=== PATIENT | female | born 1985 | race Caucasian/White ===

== ENCOUNTER 2017-10-17 13:15 | Emergency (ER) | payer OTHER ==
[2017-10-17 13:31] VITALS: BP 135/80; PULSE 108; TEMP 98; BMI 39.4
--- NOTE | 2017-10-17 13:54 | PDOC ---
History of Present Illness - General Chief Complaint: Back Pain Stated Complaint: RIGHT SIDE PAIN Time Seen by Provider: 10/17/17 13:38 - History of Present Illness Initial Comments: 32 y/o F without comorbities presents for evaluation of sudden onset of LBP localized to the R without associated symptoms. No issues like this in the past. 10/17/17 13:51 Past History - Past Medical History Allergies/Adverse Reactions: Allergies Allergy/AdvReac Type Severity Reaction Status Date / Time latex Allergy Verified 10/17/17 13:27 Home Medications: Ambulatory Orders Levothyroxine [Synthroid -] 150 mcg PO DAILY 12/17/15 Ibuprofen [Motrin -] 600 mg PO TID #30 tablet 10/17/17 COPD: No Thyroid Disease: Yes (hypothyroid) - Suicide/Smoking/Psychosocial Hx Smoking Status: No Smoking History: Never smoked Number of Cigarettes Smoked Daily: 0 Review of Systems - Review of Systems Musculoskeletal: Yes: Back Pain All Other Systems: Reviewed and Negative *Physical Exam - Vital Signs Last Vital Signs Temp Pulse Resp BP Pulse Ox 98 F 108 H 19 135/80 99 10/17/17 13:27 10/17/17 13:27 10/17/17 13:27 10/17/17 13:27 10/17/17 13:27 - Physical Exam Comments: 10/17/17 13:52 GENERAL: The patient is awake, alert, and fully oriented, in no acute distress. HEAD: Normal with no signs of trauma. EYES: Pupils equal, round and reactive to light, extraocular movements intact, sclera anicteric, conjunctiva clear. ENT: Ears normal, nares patent, oropharynx clear without exudates. Moist mucous membranes. NECK: Normal range of motion, supple without lymphadenopathy, JVD, or masses. LUNGS: Breath sounds equal, clear to auscultation bilaterally. No wheezes, and no crackles. HEART: Regular rate and rhythm, normal S1 and S2 without murmur, rub or gallop. ABDOMEN: Soft, nontender, normoactive bowel sounds. No guarding, no rebound. No masses. R CVAT EXTREMITIES: Normal range of motion, no edema. No clubbing or cyanosis. No cords, erythema, or tenderness. NEUROLOGICAL: Cranial nerves II through XII grossly intact. Normal speech, normal gait. PSYCH: Normal mood, normal affect. SKIN: Warm, Dry, normal turgor, no rashes or lesions noted. ED Treatment Course - LABORATORY CBC & Chemistry Diagram: 10/17/17 13:47 10/17/17 13:47 Medical Decision Making - Medical Decision Making I will get priliminary blood work, I suspect renal stone 10/17/17 13:53 10/17/17 16:18 CT reviewed, no obstructing stone. Will d/c with NSAIDS And urology f/u *DC/Admit/Observation/Transfer Diagnosis at time of Disposition: Renal calculus or stone - Discharge Dispostion Disposition: HOME Condition at time of disposition: Improved Decision to Admit order: No - Prescriptions Prescriptions: Ibuprofen [Motrin -] 600 mg PO TID #30 tablet - Referrals Referrals: Giovani Samaniego MD [Staff Physician] - - Patient Instructions Printed Discharge Instructions: Kidney Stones -- Adult, DI for Kidney Stones Additional Instructions: Please return to the ER should your symptoms worsen or go unresolved. Be sure to follow up with urology in the next 1-2 days for further evaluation and treatment options. I have given you a prescription for Motrin which should help with your discomfort. Please take this medication with food and stop it if it should upset your stomach. - Post Discharge Activity
[2017-10-17 14:05] LABS: BASO % 0.9 % (0-2.0); EOS % 1.4 % (0-4.5); HEMOGLOBIN 13.7 GM/dL (10.7-15.3); LYMPH % 23.9 % (8-40); MCHC 33.3 g/dl (32.0-36.0); MEAN CELL VOLUME 90.1 fl (80-96); NEUT % 68.8 % (42.8-82.8); PLATELET COUNT 338 K/MM3 (134-434); RBC 4.55 M/mm3 (3.60-5.2); RDW 13.9 % (11.6-15.6); WHITE BLOOD COUNT 11.1 K/mm3 (4.0-10.0)
[2017-10-17 14:13] LABS: URINE APPEARANCE SLCLOUDY; URINE BILIRUBIN NEGATIVE (<2.0 mg/dL); URINE COLOR YELLOW; URINE GLUCOSE (UA) NEGATIVE (NEGATIVE); URINE KETONE NEGATIVE (NEGATIVE); URINE LEUK ESTERASE NEGATIVE (NEGATIVE); URINE NITRITE NEGATIVE (NEGATIVE); URINE UROBILINOGEN NEGATIVE mg/dL (0.2-1.0)
[2017-10-17 14:16] LABS: URINE PROTEIN 1+ (NEGATIVE)
[2017-10-17] MEDS ORDERED: KETOROLAC TROMETHAMINE 60 MG/2 ML VIAL IM ONE (14:20)
[2017-10-17] MEDS ORDERED: RANITIDINE HCL 150 MG TABLET (FP) PO ONE (14:20)
[2017-10-17] MEDS ORDERED: KETOROLAC TROMETHAMINE 60 MG/2 ML VIAL ONE (14:22)
[2017-10-17] MEDS ORDERED: RANITIDINE HCL 150 MG TABLET (FP) ONE (14:23)
[2017-10-17 14:27] LABS: EPI CELLS MODERATE /HPF (FEW)
[2017-10-17 15:33] LABS: ALBUMIN 4.1 g/dl (3.4-5.0); ALK PHOS 83 U/L (45-117); ANION GAP 9 (8-16); BILIRUBIN,TOTAL 0.5 mg/dL (0.2-1.0); BLOOD UREA NITROGEN 10 mg/dL (7-18); CALCIUM 9.4 mg/dL (8.5-10.1); CHLORIDE 103 mmol/L (98-107); CO2 25 mmol/L (21-32); CREATININE 0.7 mg/dL (0.55-1.02); GLUCOSE,RANDOM 94 mg/dL (74-106); POTASSIUM 4.2 mmol/L (3.5-5.1); SGOT/AST 16 U/L (15-37); SGPT/ALT 24 U/L (12-78); SODIUM 137 mmol/L (136-145); TOT PROT 8.8 g/dl (6.4-8.2)
== END 2017-10-17 16:26 | disposition home or self-care (01) ==
LOC: JERFT 13:15
PROC: 3E0233Z Introduction of Anti-inflammatory into Muscle, Percutaneous Approach (ICD-10-PCS; principal; 2017-10-17)
DX: N20.0 Calculus of kidney (principal); E03.9 Hypothyroidism, unspecified
CPT/HCPCS: 36415; 74176-TC; 80053; 81003; 81015; 84703; 85025; 99282-25

== ENCOUNTER 2018-03-05 12:47 | Emergency (ER) | payer OTHER ==
[2018-03-05 12:55] VITALS: BP 117/72; PULSE 102; TEMP 98; BMI 34.3
[2018-03-05] MEDS ORDERED: LACTATED RINGERS SOLUTION 1,000 ML IV STA (12:57)
[2018-03-05] MEDS ORDERED: ONDANSETRON 4 MG/2 ML VIAL IVPUSH ONE (12:57)
--- NOTE | 2018-03-05 12:57 | PDOC ---
History of Present Illness - General Chief Complaint: Nausea/Vomiting Stated Complaint: DEHYDRATED Time Seen by Provider: 03/05/18 12:56 History Source: Patient Exam Limitations: No Limitations - History of Present Illness Initial Comments: 03/05/18 13:33 32 YOF with h/o hypothyroidism, gastric sleeve bypass surgery 01/27/18 and esophageal stricture s/p balloon dilation (02/28/18) with NYP presenting with worsening AP, nausea and NBNB vomiting x 1 week, but present x 5 weeks since her surgery. difficulty tolerating PO intake including solids, liquids and ensure. pt states no f/c, cp, sob, urinary sx currently on menses. no tobacco or etoh use. NKA. PMD Dr. Liborio Frausto [phone] ([place]) 03/05/18 13:40 Past History - Past Medical History Allergies/Adverse Reactions: Allergies Allergy/AdvReac Type Severity Reaction Status Date / Time latex Allergy Verified 03/05/18 12:50 Home Medications: Ambulatory Orders Levothyroxine [Synthroid -] 150 mcg PO DAILY 12/17/15 COPD: No Thyroid Disease: Yes (hypothyroid) - Surgical History GI Surgery: Yes (gastric sleeve) - Suicide/Smoking/Psychosocial Hx Smoking Status: No Smoking History: Unknown if ever smoked Number of Cigarettes Smoked Daily: 0 Review of Systems - Review of Systems Able to Perform ROS?: Yes Comments:: 03/05/18 13:36 GENERAL/CONSTITUTIONAL: No fever or chills. No weakness. no sweats. HEAD, EYES, EARS, NOSE AND THROAT: No sore throat or mouth pain. +difficulty swallowing. No congestion. CARDIOVASCULAR: No chest pain or palpitations, or edema. +syncope (2d ago) RESPIRATORY: No SOB, cough, wheezing, or hemoptysis. GASTROINTESTINAL +AP, nausea/vomiting. No diarrhea or constipation. No bloody stools. GENITOURINARY: No hematuria, dysuria, frequency, urgency or other changes. MUSCULOSKELETAL: No joint or muscle swelling or pain. No neck or back pain. SKIN: No rash or changes in skin color or lesions. NEUROLOGIC: No headache, or change in strength/sensation. HEMATOLOGIC/LYMPHATIC: No anemia, easy bruising/bleeding, or history of blood clots. ALLERGIC/IMMUNOLOGIC: No allergies All other systems reviewed and negative, or as documented in HPI. *Physical Exam - Vital Signs Last Vital Signs Temp Pulse Resp BP Pulse Ox 98 F 102 H 18 117/72 100 03/05/18 12:54 03/05/18 12:54 03/05/18 12:54 03/05/18 12:54 03/05/18 12:54 - Physical Exam Comments: 03/05/18 13:40 General: Well appearing, awake and alert, NAD. HEENT: NCAT, PERRL, EOMI, clear conjunctiva, anicteric, moist mucus membranes, clear oropharynx, no oral lesions.. Neck: neck supple, FROM Resp: CTAB, normal and even respirations, no respiratory distress CVS: RRR, no murmurs, 2+ peripheral pulses throughout, no peripheral edema Abdomen: soft, nondistended, diffuse mid abdominal tenderness, no rebound or guarding. no cvat. Back: nontender, normal inspection and ROM MSK: no edema, SEBASTIAN x4, ROM intact. No clubbing or cyanosis. normal bulk and tone. Extrem: no calf tenderness Neuro: alert, oriented appropriately; no focal neurologic deficits Skin: warm and well perfused, cap refill <2 sec, normal color 03/05/18 13:41 ED Treatment Course - LABORATORY CBC & Chemistry Diagram: 03/05/18 13:36 03/05/18 13:36 Medical Decision Making - Medical Decision Making 03/05/18 17:[facility] Vital signs reviewed, mild tachy 2/2 pain. Prior notes reviewed, including admissions, discharges and consultations. laboratory results and imaging reviewed, basic labs and lytes wnl, neg for . LFTs normal, lipase normal, reassuring. ED course: no acute events, remained stable and well appearing. Clinically improved after interventions, including zofran, LR hydration, pepcid and banana bag. Spoke with private bariatric surgeon, Dr. Frausto, amenable to plan. CT a/p pending to r/o internal hernia/obstruction given recent sleeve. Can get 60cc gastroview given gastric sleeve. if unremarkable, can followup surgeon. Dispo: s/o pending reeval, CT results and ultimate dispo; return precautions discussed. f/u Dr. Frausto, primary bariatric surgeon, who was made aware of information and presentation today 03/05/18 17:17 *DC/Admit/Observation/Transfer Diagnosis at time of Disposition: Abdominal pain - Discharge Dispostion Condition at time of disposition: Good - Referrals - Patient Instructions - Post Discharge Activity
[2018-03-05] MEDS ORDERED: FAMOTIDINE 20 MG/50 ML IVPB 20 MG/50 ML MG IVPB ONE ×2 (13:00→13:17)
[2018-03-05] MEDS ORDERED: ONDANSETRON 4 MG/2 ML VIAL ONE (13:17)
[2018-03-05 13:51] LABS: BASO % 0.5 % (0-2.0); EOS % 2.6 % (0-4.5); HEMATOCRIT 40.4 % (32.4-45.2); HEMOGLOBIN 13.8 GM/dL (10.7-15.3); LYMPH % 25.5 % (8-40); MCHC 34.1 g/dl (32.0-36.0); MEAN PLT VOLUME 10.6 fl (7.5-11.1); MONO % 7.8 % (3.8-10.2); NEUT % 63.6 % (42.8-82.8); PLATELET COUNT 194 K/MM3 (134-434); RBC 4.59 M/mm3 (3.60-5.2); RDW 15.6 % (11.6-15.6); WHITE BLOOD COUNT 5.9 K/mm3 (4.0-10.0)
[2018-03-05 14:13] LABS: ALBUMIN 3.9 g/dl (3.4-5.0); ALK PHOS 102 U/L (45-117); ANION GAP 13 MMOL/L (8-16); BILIRUBIN,TOTAL 0.7 mg/dL (0.2-1); CALCIUM 9.3 mg/dL (8.5-10.1); CHLORIDE 108 mmol/L (98-107); CO2 19 mmol/L (21-32); CREATININE 0.7 mg/dL (0.55-1.3); GLUCOSE,RANDOM 86 mg/dL (74-106); LIPASE 264 U/L (73-393); POTASSIUM 3.7 mmol/L (3.5-5.1); SGOT/AST 28 U/L (15-37); SGPT/ALT 43 U/L (13-61); SODIUM 140 mmol/L (136-145); TOT PROT 8.2 g/dl (6.4-8.2)
[2018-03-05] MEDS ORDERED: LACTATED RINGERS SOLUTION 1000 ML INFUS.BAG IV ONE (14:30)
[2018-03-05] MEDS ORDERED: FOLIC ACID 1 MG TABLET (FP) PO ONE (14:30)
[2018-03-05] MEDS ORDERED: FOLIC ACID INJECTION - 1 MG, THIAMINE HCL 100 MG, MULTIVIT INJECTION ADULT 10 ML in SOD... IVPB ONE (14:30)
[2018-03-05 14:39] LABS: BLOOD UREA NITROGEN 2 mg/dL (7-18)
--- NOTE | 2018-03-05 18:38 | PDOC ---
*Physical Exam - Vital Signs Last Vital Signs Temp Pulse Resp BP Pulse Ox 98 F 102 H 18 117/72 100 03/05/18 12:54 03/05/18 12:54 03/05/18 12:54 03/05/18 12:54 03/05/18 12:54 - Physical Exam Comments: 03/05/18 18:35 Patient endorsed to me by Dr. Santana. Patient is a 32-year-old female status post gastric sleeve 5 weeks previously presented with abdominal pain and numerous episodes of nonbloody, nonbilious vomiting. Patient also endorses recurrent nausea since surgery. In the ER, patient improved after interventions of IV fluids and antiemetics. CT of abdomen and pelvis reveals no evidence of internal hernia, a liver lesion is noted on image 37 measuring 17 mm which requires patient follow-up with MRI. There is also mild wall thickening of the proximal right colon and distal small bowel consistent with enterocolitis. On reassessment, patient has minimal tenderness to deep palpation of the left upper quadrant, left lower quadrant and right lower quadrant. There is no guarding or rebound. Patient able tolerate by mouth. I do not suspect acute appendicitis with diverticulitis at this time. Repeat attempts to consult the bariatric surgeon were unsuccessful. Patient provided results of the CAT scan. Will discharge with outpatient follow-up as planned. ED Treatment Course - LABORATORY CBC & Chemistry Diagram: 03/05/18 13:36 03/05/18 13:36 - ADDITIONAL ORDERS Additional order review: Laboratory Results 03/05/18 03/05/18 13:36 13:36 Sodium 140 Potassium 3.7 Chloride 108 H Carbon Dioxide 19 L Anion Gap 13 BUN 2 L* Creatinine 0.7 Creat Clearance w eGFR > 60 Random Glucose 86 Calcium 9.3 Total Bilirubin 0.7 AST 28 ALT 43 Alkaline Phosphatase 102 Total Protein 8.2 Albumin 3.9 Lipase 264 Serum , Qual Negative 03/05/18 13:36 RBC 4.59 MCV 88.0 MCHC 34.1 RDW 15.6 D MPV 10.6 D Neutrophils % 63.6 Lymphocytes % 25.5 Monocytes % 7.8 Eosinophils % 2.6 D Basophils % 0.5 - Medications Given in the ED: ED Medications Discontinued Medications Generic Name Dose Route Start Last Admin Trade Name Freq PRN Reason Stop Dose Admin Folic Acid 1 mg 03/05/18 14:30 03/05/18 17:44 Folic Acid - PO 03/05/18 14:31 Not Given ONCE ONE Lactated Ringer's 1,000 mls @ 1,000 mls/hr 03/05/18 12:57 03/05/18 13:37 Lactated Ringers Solution IV 03/05/18 13:56 1,000 mls/hr ONCE STA Administration Famotidine/Sodium Chloride 20 mg in 50 mls @ 100 mls/hr 03/05/18 13:00 13:37 Pepcid 20 Mg Premixed Ivpb - IVPB 03/05/18 13:29 100 mls/hr ONCE ONE Administration Lactated Ringer's 1,000 ml 03/05/18 14:30 03/05/18 15:06 Lactated Ringers Solution IV 03/05/18 14:31 1,000 ml ONCE ONE Administration Ondansetron HCl 4 mg 03/05/18 12:57 03/05/18 13:37 Zofran Injection IVPUSH 03/05/18 12:58 4 mg ONCE ONE Administration *DC/Admit/Observation/Transfer Diagnosis at time of Disposition: Abdominal pain Qualifiers: Abdominal location: generalized Qualified Code(s): R10.84 - Generalized abdominal pain Nausea and vomiting Qualifiers: Vomiting type: unspecified Vomiting Intractability: non-intractable Qualified Code(s): R11.2 - Nausea with vomiting, unspecified - Discharge Dispostion Disposition: HOME Condition at time of disposition: Good - Referrals Referrals: dr. edmonds, three-4 days [Other] - Patient Instructions Printed Discharge Instructions: DI for Nausea -- Adult, DI for Vomiting -- Adult, DI for Abdominal Pain-Adult - Post Discharge Activity
== END 2018-03-05 18:50 | disposition home or self-care (01) ==
LOC: JER 12:47
PROC: 3E033GC Introduction of Other Therapeutic Substance into Peripheral Vein, Percutaneous Approach (ICD-10-PCS; principal; 2018-03-05)
PROC: 3E033GC Introduction of Other Therapeutic Substance into Peripheral Vein, Percutaneous Approach (ICD-10-PCS; 2018-03-05)
DX: R10.84 Generalized abdominal pain (principal); G89.18 Other acute postprocedural pain; Z98.84 Bariatric surgery status
CPT/HCPCS: 36415; 74177-TC; 80053; 83690; 84703; 85025; 99281-25; J7030

== ENCOUNTER 2018-07-02 15:34 | Emergency (ER) | payer OTHER ==
[2018-07-02 15:46] VITALS: BP 148/84; PULSE 96; TEMP 98.2; BMI 26.4
[2018-07-02] MEDS ORDERED: ONDANSETRON 4 MG/2 ML VIAL IVPUSH ONE (16:57)
--- NOTE | 2018-07-02 17:04 | PDOC ---
History of Present Illness - General Chief Complaint: Pain Stated Complaint: ABD PAIN/ CHILLS Time Seen by Provider: 07/02/18 16:49 History Source: Patient Exam Limitations: No Limitations - History of Present Illness Initial Comments: 07/02/18 17:04 THe patient is a 33F with a PMH of hypothyroidism, gastric sleeve bypass surgery 01/27/18 and esophageal stricture s/p balloon dilation (02/28/18) with NYP , revision of bypass 5 weeks ago who presents to the ER with 3 days of worsening abdominal pain. The patient describes a dull epigastric pain which becomes sharp as it radiates down to her RLQ. The pain is constant and worsening. She admits to chills, NBNB vomiting, but denies fever, dysuria, hematuria. She admits to not having a bowel movement since last night and also has not passed gas in the same time frame. Past History - Past Medical History Allergies/Adverse Reactions: Allergies Allergy/AdvReac Type Severity Reaction Status Date / Time latex Allergy Verified 07/02/18 15:57 Home Medications: Ambulatory Orders Levothyroxine [Synthroid -] 150 mcg PO DAILY 12/17/15 Omeprazole Magnesium [Acid Professor Of Mathematics] 40 mg PO DAILY 07/02/18 COPD: No GI Disorders: Yes (gastric sleeve) Thyroid Disease: Yes (hypothyroid) - Surgical History GI Surgery: Yes (gastric sleeve/bypass) - Suicide/Smoking/Psychosocial Hx Smoking Status: No Smoking History: Never smoked Number of Cigarettes Smoked Daily: 0 Information on smoking cessation initiated: No Hx Alcohol Use: No Drug/Substance Use Hx: No Review of Systems - Review of Systems Able to Perform ROS?: Yes Comments:: 07/02/18 17:10 GENERAL/CONSTITUTIONAL: + for chills. No fever. No weakness. HEAD, EYES, EARS, NOSE AND THROAT: No change in vision. No ear pain or discharge. No sore throat. CARDIOVASCULAR: No chest pain, palpitations, or lightheadedness. RESPIRATORY: No cough, wheezing, shortness of breath, or hemoptysis. GASTROINTESTINAL: + for nausea, vomiting, and abdominal pain. GENITOURINARY: No dysuria, frequency, hematuria, or change in urination. MUSCULOSKELETAL: No joint or muscle swelling or pain. No neck or back pain. SKIN: No rash or lesions. NEUROLOGIC: No headache, numbness, tingling, focal weakness, loss of consciousness, or change in strength/sensation. Is the patient limited Irish proficient: No *Physical Exam - Vital Signs Last Vital Signs Temp Pulse Resp BP Pulse Ox 98.2 F 96 H 19 148/84 100 07/02/18 16:21 07/02/18 16:21 07/02/18 16:21 07/02/18 16:21 07/02/18 16:21 - Physical Exam Comments: 07/02/18 17:16 GENERAL: Well developed, well nourished. Awake and alert. No acute distress. HEENT: Normocephalic, atraumatic. Hearing grossly normal. Moist mucous membranes. PERRLA, EOMI. No conjunctival pallor. NECK: Supple. Full ROM. No JVD. CARDIOVASCULAR: Regular rate and rhythm. No murmurs, rubs, or gallops. PULMONARY: No evidence of respiratory distress. Lungs clear to auscultation bilaterally. No wheezing, rales or rhonchi. ABDOMINAL: Soft. TTP over epigastrium, RUQ, and RLQ. Non-distended. No rebound or guarding. GENITOURINARY: No CVA tenderness bilaterally. MUSCULOSKELETAL: Normal range of motion at all joints. No bony deformities or tenderness. EXTREMITIES: No cyanosis. No clubbing. No edema. No calf tenderness or swelling. SKIN: Warm and dry. Normal capillary refill. No rashes. No jaundice. NEUROLOGICAL: Alert, awake, appropriate. Cranial nerves 2-12 grossly intact. Normal speech. Gait is normal without ataxia. PSYCHIATRIC: Cooperative. Good eye contact. Appropriate mood and affect. Moderate Sedation - Procedure Monitoring Vital Signs: Procedure Monitoring Vital Signs Temperature 98.2 F 07/02/18 16:21 Pulse Rate 96 H 07/02/18 16:21 Respiratory Rate 19 07/02/18 16:21 Blood Pressure 148/84 07/02/18 16:21 O2 Sat by Pulse Oximetry (%) 100 07/02/18 16:21 ED Treatment Course - LABORATORY CBC & Chemistry Diagram: 07/02/18 17:25 07/02/18 17:25 - RADIOLOGY Radiology Studies Ordered: Category Date Time Status ABDOMEN & PELVIS CT WITH CONTR [CT] Stat CT Scan 07/02/18 16:56 Ordered Medical Decision Making - Medical Decision Making 03/09/19 17:17 The patient is a 33F who recently had a bypass revision 5 weeks ago who is presenting with 3 days of abdominal pain, nausea, and vomiting. Pt is very tender on exam. Will order CT with IV and PO contrast. Will give zofran for nausea. 07/02/18 23:20 CTA chest and CTAP negative. BUN low. EKG shows t-wave inversions w/ negative troponin. Pt will f/u with boat laborer. Pt requests bariatric surgeon referral. She states that she feels better and would like ot leave. Nontender on exam. WIll d/c with PCP, cards, and bariatric f/u. *DC/Admit/Observation/Transfer Diagnosis at time of Disposition: Abdominal pain Qualifiers: Abdominal location: generalized Qualified Code(s): R10.84 - Generalized abdominal pain Nausea and vomiting Qualifiers: Vomiting type: unspecified Vomiting Intractability: non-intractable Qualified Code(s): R11.2 - Nausea with vomiting, unspecified - Discharge Dispostion Disposition: HOME Condition at time of disposition: Stable Decision to Admit order: No - Referrals Referrals: Kedar Funez [Primary Care Provider] - Gadiel Joyner MD [Staff Physician] - - Patient Instructions Printed Discharge Instructions: DI for Abdominal Pain-Adult Additional Instructions: Your ER visit is not complete until your follow up with your primary care physician. Please follow up with your primary care physician in 1-2 days. You were given a copy of your EKG. Please follow this up with your boat laborer. Please also follow up with your bariatric surgeon and/or Dr. Joyner. Please return to the ER if you have any signs or symptoms of chest pain, shortness of breath, uncontrollable fever, chills, nausea, vomiting, numbness, tingling, or weakness in any part of your body, changes in vision, or slurred speech. Please take your medications as prescribed. Please return to the ER if symptoms persist, worsen, or new symptoms arise. - Post Discharge Activity
[2018-07-02] MEDS ORDERED: ONDANSETRON 4 MG/2 ML VIAL ONE (17:26)
[2018-07-02 17:46] LABS: BASO % 0.5 % (0-2.0); EOS % 1.5 % (0-4.5); HEMATOCRIT 35.3 % (32.4-45.2); HEMOGLOBIN 12.7 GM/dL (10.7-15.3); MCHC 35.8 g/dl (32.0-36.0); MEAN CELL VOLUME 97.5 fl (80-96); MEAN PLT VOLUME 9.7 fl (7.5-11.1); MONO % 5.6 % (3.8-10.2); NEUT % 59.4 % (42.8-82.8); PLATELET COUNT 240 K/MM3 (134-434); RBC 3.62 M/mm3 (3.60-5.2); RDW 15.2 % (11.6-15.6); WHITE BLOOD COUNT 5.7 K/mm3 (4.0-10.0)
[2018-07-02 18:27] LABS: ALBUMIN 3.8 g/dl (3.4-5.0); ALK PHOS 80 U/L (45-117); ANION GAP 12 MMOL/L (8-16); BILIRUBIN,TOTAL 0.5 mg/dL (0.2-1); CALCIUM 8.8 mg/dL (8.5-10.1); CHLORIDE 107 mmol/L (98-107); CO2 21 mmol/L (21-32); CREATININE 0.5 mg/dL (0.55-1.3); GLUCOSE,RANDOM 70 mg/dL (74-106); LIPASE 76 U/L (73-393); POTASSIUM 3.1 mmol/L (3.5-5.1); SGOT/AST 15 U/L (15-37); SGPT/ALT 19 U/L (13-61); SODIUM 139 mmol/L (136-145); TOT PROT 7.4 g/dl (6.4-8.2)
[2018-07-02 18:45] LABS: BLOOD UREA NITROGEN 2 mg/dL (7-18)
[2018-07-02] MEDS ORDERED: ACETAMINOPHEN 1000 MG/100 ML VIAL (NON FORMULARY) IVPB ONE (18:45)
[2018-07-02] MEDS ORDERED: SODIUM CHLORIDE 1,000 ML IV STA (18:45)
[2018-07-02] MEDS ORDERED: ACETAMINOPHEN INJECTION 100 ML IVPB ONE (18:47)
--- NOTE | 2018-07-02 18:54 | PDOC ---
Attending Attestation - Resident Resident Name: Vishal Stinson - ED Attending Attestation I have performed the following: I have examined & evaluated the patient, The case was reviewed & discussed with the resident, I agree w/resident's findings & plan, Exceptions are as noted - HPI HPI: 07/02/18 18:50 The patient is a 33 year old female, with a past medical history of hypothyroidism, gastric sleeve surgery (01/27/18), esophageal stricture (s/p balloon dilation 02/28/18 at [facility]), and gastric bypass revision 5 weeks ago, who presents to the emergency department with 3 days of worsening epigastric abdominal pain and vomiting. Pt reports multiple episodes of NBNB emesis. Denies diarrhea. Patient notes she has not passed a BM or gas since yesterday. Pt also endorses mild L sided chest pain. Denies SOB. States that she was prescribed a blood thinner after surgery but did not fill it due to insurance reasons. She denies recent fevers, chills, headache or dizziness. She denies recent dysuria, frequency, urgency or hematuria. She denies recent chest pain or shortness of breath. Allergies: Latex - Physicial Exam PE: 07/02/18 18:51 "GENERAL: Awake, alert, and fully oriented, in no acute distress. HEAD: No signs of trauma EYES: PERRLA, EOMI, sclera anicteric, conjunctiva clear ENT: Auricles normal inspection, hearing grossly normal, nares patent, oropharynx clear without exudates. Moist mucosa NECK: Nontender, no stepoffs, Normal ROM, supple, no lymphadenopathy, JVD, or masses LUNGS: Breath sounds equal, clear to auscultation bilaterally. No wheezes, and no crackles HEART: Regular rate and rhythm, normal S1 and S2, no murmurs, rubs or gallops ABDOMEN: + epigastric TTP, mild distention EXTREMITIES: Normal range of motion, no edema. No clubbing or cyanosis. No cords, erythema, or tenderness NEUROLOGICAL: Cranial nerves II through XII intact. 5/5 strength and sensation in all extremities, Normal speech, normal gait, normal cerebellar function SKIN: Warm, Dry, normal turgor, no rashes or lesions noted. - Medical Decision Making 07/02/18 18:52 33 F with abdominal pain, N+V. Will need to r/o SBO or other complication from recent surgery. Pt also with L sided chest pain radiating to arm. Will need to r /o PE. - Labs - CTAP - IVF, GI cocktail Pt's EKG noted to have diffuse TWIs. Pt reports that she has had "abnormal" EKG her entire life but is unable to say exactly what is abnormal about it. Trop negative x1.
[2018-07-02 18:55] LABS: URINE APPEARANCE CLEAR; URINE BILIRUBIN NEGATIVE (<2.0 mg/dL); URINE COLOR YELLOW; URINE GLUCOSE (UA) NEGATIVE (NEGATIVE); URINE KETONE 2+ (NEGATIVE); URINE LEUK ESTERASE NEGATIVE (NEGATIVE); URINE NITRITE NEGATIVE (NEGATIVE); URINE PROTEIN 1+ (NEGATIVE); URINE UROBILINOGEN NEGATIVE mg/dL (0.2-1.0)
[2018-07-02] MEDS ORDERED: KCL 10 MEQ IVPB 10 MEQ/100 ML INFUS.BAG IVPB ONE (19:07)
[2018-07-02] MEDS: KCL 10 MEQ IVPB 10 MEQ/100 ML INFUS.BAG IVPB SCH ×2 (19:08→20:27)
[2018-07-02 19:19] LABS: EPI CELLS RARE /HPF (FEW); URINE MUCUS RARE
[2018-07-02] MEDS ORDERED: METOCLOPRAMIDE HCL INJECTION 10 MG/2 ML VIAL IVPB ONE (22:46)
[2018-07-02] MEDS ORDERED: METOCLOPRAMIDE HCL INJECTION 10 MG/2 ML VIAL ONE (22:49)
--- NOTE | 2018-07-03 11:51 | EKG ---
Test Reason : Blood Pressure : / mmHG Vent. Rate : 093 BPM Atrial Rate : 093 BPM P-R Int : 158 ms QRS Dur : 080 ms QT Int : 376 ms P-R-T Axes : 068 039 -56 degrees QTc Int : 467 ms NORMAL SINUS RHYTHM T WAVE ABNORMALITY, CONSIDER INFERIOR ISCHEMIA T WAVE ABNORMALITY, CONSIDER ANTEROLATERAL ISCHEMIA PROLONGED QT ABNORMAL ECG WHEN COMPARED WITH ECG OF 02-SEP-2008 18:02, INVERTED T WAVES HAVE REPLACED NONSPECIFIC T WAVE ABNORMALITY IN INFERIOR LEADS T WAVE INVERSION LESS EVIDENT IN LATERAL LEADS Confirmed by JT JACOB MD ([id number]) on 07/03/2018 11:50:34 AM Referred By: Confirmed By:JT JACOB MD
== END 2018-07-02 23:53 | disposition home or self-care (01) ==
LOC: JER 15:34
PROC: 3E0337Z Introduction of Electrolytic and Water Balance Substance into Peripheral Vein, Percutaneous Approach (ICD-10-PCS; principal; 2018-07-02)
PROC: 3E033GC Introduction of Other Therapeutic Substance into Peripheral Vein, Percutaneous Approach (ICD-10-PCS; 2018-07-02)
PROC: 3E033NZ Introduction of Analgesics, Hypnotics, Sedatives into Peripheral Vein, Percutaneous Approach (ICD-10-PCS; 2018-07-02)
DX: R10.84 Generalized abdominal pain (principal); R11.2 Nausea with vomiting, unspecified; E03.9 Hypothyroidism, unspecified; Z98.84 Bariatric surgery status
CPT/HCPCS: 36415; 71275-TC; 74177-TC; 80053; 81003; 81015; 82550; 83690; 84484; 84703; 85025; 87086; 93005; 93010; 99283-25; J0131; J7030

== ENCOUNTER 2018-10-22 18:25 | Inpatient (IN) | payer OTHER ==
[2018-10-22 18:28] VITALS: BMI 22.4
[2018-10-22 20:16] VITALS: TEMP 98.2
[2018-10-22 20:35] LABS: BASO % 0.5 % (0-2.0); EOS % 1.9 % (0-4.5); HEMATOCRIT 34.6 % (32.4-45.2); HEMOGLOBIN 11.6 GM/dL (10.7-15.3); LYMPH % 40.8 % (8-40); MCH 33.5 pg (25.7-33.7); MCHC 33.6 g/dl (32.0-36.0); MEAN CELL VOLUME 99.6 fl (80-96); MEAN PLT VOLUME 8.9 fl (7.5-11.1); MONO % 8.1 % (3.8-10.2); NEUT % 48.7 % (42.8-82.8); RBC 3.48 M/mm3 (3.60-5.2); RDW 14.2 % (11.6-15.6); WHITE BLOOD COUNT 4.6 K/mm3 (4.0-10.0)
[2018-10-22 20:42] LABS: PLATELET COUNT 312 K/MM3 (134-434)
--- NOTE | 2018-10-22 20:52 | PDOC ---
History of Present Illness - General History Source: Patient Exam Limitations: No Limitations - History of Present Illness Initial Comments: 10/22/18 20:28 Patient is a 33 year old female with h/o hypothyroid, gastric sleeve 01/2018, gastric bypass 05/2018, c/o b/l lower ext swelling x 2 weeks that does not go down with elevation, chest pain x 3 States feels like a pressure and stabbing occ, flutter for year saw a cardiology who states will get a repeat echo and stress test. Went to [facility] yesterday due to the chest pain. Yesterday she had numbness for the knees down and had swelling from the knees down. States that she had decrease appetite from "the stupid surgery". Patient states that she has been getting worse since getting her gastric sleeve in January 2018. States that her body rejected the gastric sleeve at [facility]. She then had a gastric bypass on 05/27/[address] [facility]. She had chills and swelling which started sweating, denies fever. Had a high prolactin level last year and had a MRI brain scan which was normal. Thinks that the prolactin level was elevated due to breast feeding. Saw the Neurology who diagnosed her with migraines. PMD: Dr. Dean ([facility]) PMHX: as above PSOCHX: neg cig, drug, etoh ALL: latex GENERAL/CONSTITUTIONAL: fever (+) chills. No weakness. (+) weight change. HEAD, EYES, EARS, NOSE AND THROAT: No change in vision. No ear pain or discharge. No sore throat. CARDIOVASCULAR: No chest pain or shortness of breath. RESPIRATORY: No cough, wheezing, or hemoptysis. GASTROINTESTINAL: No nausea, vomiting, diarrhea or constipation. No rectal bleeding. GENITOURINARY: No dysuria, frequency, or change in urination. MUSCULOSKELETAL: No joint or muscle swelling or pain. No neck or back pain. SKIN AND BREASTS: No rash or easy bruising. NEUROLOGIC: (+) headache, (-) vertigo, loss of consciousness, or loss of sensation. PSYCHIATRIC: No depression or anxiety. ENDOCRINE: No increased thirst. (-) abnormal weight change. HEMATOLOGIC/LYMPHATIC: No anemia, easy bleeding, or history of blood clots. ALLERGIC/IMMUNOLOGIC: No hives or skin allergy. No latex allergy. GENERAL: The patient is awake, alert, and fully oriented, in no acute distress. HEAD: Normal with no signs of trauma. EYES: Pupils equal, round and reactive to light, extraocular movements intact, sclera anicteric, conjunctiva clear. ENT: Ears normal, nares patent, oropharynx clear without exudates. Moist mucous membranes. NECK: Normal range of motion, supple without lymphadenopathy, JVD, or masses. LUNGS: Breath sounds equal, clear to auscultation bilaterally. No wheezes, and no crackles. HEART: Regular rate and rhythm, normal S1 and S2 without murmur, rub. ABDOMEN: Soft, nontender, normoactive bowel sounds. No guarding, no rebound. No masses. EXTREMITIES: Normal range of motion, (+)nonpitting edema. No clubbing or cyanosis. No cords, erythema, or tenderness. NEUROLOGICAL: Cranial nerves II through XII grossly intact. Normal speech, normal gait. PSYCH: Normal mood, normal affect. SKIN: Warm, Dry, normal turgor, no rashes or lesions noted, no cellulitis. <Kobe Holt - Last Filed: 10/23/18 01:07> <Zhanna Masters - Last Filed: 10/23/18 02:36> - General Chief Complaint: Edema Stated Complaint: LEG SWELLING/CHEST PRESSURE Time Seen by Provider: 10/22/18 19:22 Past History - Past Medical History COPD: No GI Disorders: Yes (gastric sleeve) Thyroid Disease: Yes (hypothyroid) - Surgical History GI Surgery: Yes (gastric sleeve/bypass) - Suicide/Smoking/Psychosocial Hx Smoking Status: No Smoking History: Never smoked Number of Cigarettes Smoked Daily: 0 Hx Alcohol Use: No Drug/Substance Use Hx: No <Kobe Holt - Last Filed: 10/23/18 01:07> <Zhanna Masters - Last Filed: 10/23/18 02:36> - Past Medical History Allergies/Adverse Reactions: Allergies Allergy/AdvReac Type Severity Reaction Status Date / Time latex Allergy Verified 10/22/18 18:28 Home Medications: Ambulatory Orders Levothyroxine [Synthroid -] 150 mcg PO DAILY 12/17/15 *Physical Exam - Vital Signs Last Vital Signs Temp Pulse Resp BP Pulse Ox 98.2 F 83 20 159/92 97 10/22/18 18:28 10/22/18 18:28 10/22/18 18:26 10/22/18 18:28 10/22/18 18:28 <Kobe Holt - Last Filed: 10/23/18 01:07> - Vital Signs Last Vital Signs Temp Pulse Resp BP Pulse Ox 98.2 F 83 20 159/92 97 10/22/18 18:28 10/22/18 18:28 10/22/18 18:26 10/22/18 18:28 10/22/18 18:28 <Zhanna Masters - Last Filed: 10/23/18 02:36> ED Treatment Course - LABORATORY CBC & Chemistry Diagram: 10/22/18 19:57 10/22/18 19:57 - RADIOLOGY Radiology Studies Ordered: Category Date Time Status CHEST CTA [CT] Stat CT Scan 10/22/18 19:36 Ordered <Kobe Holt - Last Filed: 10/23/18 01:07> - LABORATORY CBC & Chemistry Diagram: 10/22/18 19:57 10/22/18 19:57 - ADDITIONAL ORDERS Additional order review: Laboratory Results 10/22/18 10/22/18 10/22/18 21:25 20:19 19:57 Sodium 146 H Potassium 3.4 L Chloride 111 H Carbon Dioxide 26 Anion Gap 9 BUN 5.4 L Creatinine 0.7 Est GFR (CKD-EPI)AfAm 131.94 Est GFR (CKD-EPI)NonAf 113.84 Random Glucose 80 Calcium 8.7 Total Bilirubin 0.4 AST 19 ALT 27 Alkaline Phosphatase 67 Creatine Kinase 36 Troponin I < 0.02 B-Natriuretic Peptide 205.9 H Total Protein 6.8 Albumin 3.6 Serum , Qual Negative Stool Occult Blood Negative 10/22/18 19:57 RBC 3.48 L MCV 99.6 H MCHC 33.6 RDW 14.2 MPV 8.9 Neutrophils % 48.7 Lymphocytes % 40.8 H D Monocytes % 8.1 Eosinophils % 1.9 Basophils % 0.5 <Zhanna Masters - Last Filed: 10/23/18 02:36> Medical Decision Making - Medical Decision Making 10/22/18 20:52 Patient with b/l leg swelling x 2 weeks will get labs cbc,cmp, pro-bnp, ekg cta chest EKG SR rate 79, PAc x 1, Twave inversion III, aVF, V1-V4 unchanged from 07/02/18 Case was discussed with Dr. Ugarte who recommended that the patient should go on omeprazole for possible stomach ulcers which may cause slow bleeding. 10/23/18 01:02 atient Full Name: MARVIN RIVER Patient Accession No: [id number] Patient : 1985 Reason for Exam: chest pain Referring Physician: Patient Name: DOMENICA WONG THIS IS A PRELIMINARY REPORT FROM [facility] DATE OF SERVICE: 2018-10-22 23:09:42 IMAGES: [id number] EXAM: CHEST CTA HISTORY: Chest pain COMPARISON: None. FINDINGS: There is no PE or dissection. Heart size is normal. The trachea and bronchi are patent. There is no pleural or pericardial effusion. The lungs are clear. No fractures identified. The upper abdominal structures are normal. IMPRESSION: No evidence of pathology. One or more of the following dose reduction techniques were used: automated exposure control, adjustment of the mA and/or kV according to patient size, use of iterative reconstructive technique. THIS DOCUMENT HAS BEEN ELECTRONICALLY SIGNED Josh Velasquez MD 10/23/2018 00:22 LONNIE MRuby. Please call [facility] [phone] ([phone]) with questions. INTERPRETING RADIOLOGIST: Francisco Velasquez MD Electronically Signed: Oct 23, 2018 12:23AM EDT 10/23/18 01:03 Laboratory Tests 10/22/18 10/22/18 19:57 19:57 WBC 4.6 Hgb 11.6 Hct 34.6 MCV 99.6 H Plt Count 312 D Sodium 146 H Potassium 3.4 L Chloride 111 H Carbon Dioxide 26 Anion Gap 9 BUN 5.4 L Creatinine 0.7 Troponin I < 0.02 B-Natriuretic Peptide 205.9 H 10/23/18 01:07 Stool occult blood is negative no evidence of bleeding based on workup. I discussed the physical exam findings, ancillary test results and final diagnoses with the patient. I answered all of the patient's questions. The patient was satisfied with the care received and felt comfortable with the discharge plan and treatment plan. The Patient agrees to follow up with the primary care physician within 24-72 hours.. <Kobe Holt - Last Filed: 10/23/18 01:07> - Medical Decision Making 10/23/18 00:29 Patient Name: DOMENICA WONG THIS IS A PRELIMINARY REPORT FROM [facility] DATE OF SERVICE: 2018-10-22 23:09:42 IMAGES: [id number] EXAM: CHEST CTA HISTORY: Chest pain COMPARISON: None. FINDINGS: There is no PE or dissection. Heart size is normal. The trachea and bronchi are patent. There is no pleural or pericardial effusion. The lungs are clear. No fractures identified. The upper abdominal structures are normal. IMPRESSION: No evidence of pathology <Zhanna Masters - Last Filed: 10/23/18 02:36> *DC/Admit/Observation/Transfer <Kobe Holt - Last Filed: 10/23/18 01:07> - Discharge Dispostion Decision to Admit order: Yes <Zhanna Masters - Last Filed: 10/23/18 02:36> Diagnosis at time of Disposition: Peripheral edema, Palpitations, Difficulty walking Chest pain Qualifiers: Chest pain type: unspecified Qualified Code(s): R07.9 - Chest pain, unspecified - Discharge Dispostion Condition at time of disposition: Guarded - Referrals Referrals: Kedar Funez [Primary Care Provider] - - Patient Instructions Printed Discharge Instructions: DI for Atypical Chest Pain, DI for Peripheral Edema -- Bilateral, DI for Palpitations Additional Instructions: Your Discharge Instructions: You must call primary care physician within 24 hours to arrange follow-up. Return to the Emergency Department with any new, persistent or worsening symptoms, for fever, chills, SOB, dizziness or any other concerning changes that may occur. - Post Discharge Activity
[2018-10-22 21:33] LABS: ALBUMIN 3.6 g/dl (3.4-5.0); ALK PHOS 67 U/L (45-117); ANION GAP 9 MMOL/L (8-16); BILIRUBIN,TOTAL 0.4 mg/dL (0.2-1); BLOOD UREA NITROGEN 5.4 mg/dL (7-18); CALCIUM 8.7 mg/dL (8.5-10.1); CHLORIDE 111 mmol/L (98-107); CO2 26 mmol/L (21-32); CREATININE 0.7 mg/dL (0.55-1.3); GLUCOSE,RANDOM 80 mg/dL (74-106); N-TERMINAL BNP 205.9 pg/ml (5-125); POTASSIUM 3.4 mmol/L (3.5-5.1); SGOT/AST 19 U/L (15-37); SGPT/ALT 27 U/L (13-61); SODIUM 146 mmol/L (136-145); TOT PROT 6.8 g/dl (6.4-8.2)
--- NOTE | 2018-10-23 02:56 | HP ---
CHIEF COMPLAINT:lower ext edema PCP: HISTORY OF PRESENT ILLNESS: 33 year old female with pmhx of gastric sleeve 2018, liposuction 2 weeks ago and hyperthyroidim presented with Lower ext edema right is worse than left with pain and limbing upon walking , not sure if symptoms start after the recent liposuction or before , she endorse worsening edema and pain and recent difficulty walking she visited [facility] ED and left due to long waiting time , she was supposed to see her PCP today but office was closed pt has recent lab with her pcp with no significany abnormality , she denies any fevr , chills, N/V/D/C denies any chest pain , but reports palpitation with negative echo and stress test , trop was negative today and no chest pain was reported she denies any urinary symptoms. ER course was notable for: (1)cbc, cmp (2)US LE negative for DVTS (3)trop negative Recent Travel:denies PAST MEDICAL HISTORY: as per HPI PAST SURGICAL HISTORY: Gastric sleeve and liposuction Social History: Smokin/2 PPD since age of 15 Alcohol:socially Drugs: denies Family History:non contributory Allergies latex Allergy (Verified 10/22/18 18:28) HOME MEDICATIONS: Home Medications Medication Instructions Recorded Levothyroxine [Synthroid -] 150 mcg PO DAILY 12/17/15 REVIEW OF SYSTEMS CONSTITUTIONAL: Absent: fever, chills, diaphoresis, generalized weakness, malaise, loss of appetite, weight change HEENT: Absent: rhinorrhea, nasal congestion, throat pain, throat swelling, difficulty swallowing, mouth swelling, ear pain, eye pain, visual changes CARDIOVASCULAR: Absent: chest pain, syncope, palpitations, irregular heart rate, lightheadedness , peripheral edema RESPIRATORY: Absent: cough, shortness of breath, dyspnea with exertion, orthopnea, wheezing, stridor, hemoptysis GASTROINTESTINAL: Absent: abdominal pain, abdominal distension, nausea, vomiting, diarrhea, constipation, melena, hematochezia GENITOURINARY: Absent: dysuria, frequency, urgency, hesitancy, hematuria, flank pain, genital pain MUSCULOSKELETAL: Absent: myalgia, arthralgia, joint swelling, back pain, neck pain SKIN: Absent: rash, itching, pallor HEMATOLOGIC/IMMUNOLOGIC: Absent: easy bleeding, easy bruising, lymphadenopathy, frequent infections ENDOCRINE: Absent: unexplained weight gain, unexplained weight loss, heat intolerance, cold intolerance NEUROLOGIC: Absent: headache, focal weakness or paresthesias, dizziness, unsteady gait, seizure, mental status changes, bladder or bowel incontinence PSYCHIATRIC: Absent: anxiety, depression, suicidal or homicidal ideation, hallucinations. PHYSICAL EXAMINATION Vital Signs - 24 hr 10/22/18 10/22/18 18:26 18:28 Temperature 98.4 F 98.2 F Pulse Rate 104 H Pulse Rate [ 83 Right Radial] Respiratory 20 Rate Blood Pressure 148/99 Blood Pressure 159/92 [Left Arm] O2 Sat by Pulse 100 97 Oximetry (%) GENERAL: The patient is awake, alert, and fully oriented, in no acute distress. HEAD: Normal with no signs of trauma. EYES: PERRL, extraocular movements intact, sclera anicteric, conjunctiva clear. ENT: Ears normal, nares patent, oropharynx clear without exudates, moist mucous membranes. NECK: Trachea midline, full range of motion, supple. LUNGS: Breath sounds equal, clear to auscultation bilaterally, no wheezes, no crackles, no accessory muscle use. HEART: Regular rate and rhythm, S1, S2 without murmur, rub or gallop. ABDOMEN: Soft, nontender, non distended, normoactive bowel sounds, no guarding, no rebound, no hepatosplenomegaly, no masses. EXTREMITIES: 2+ pulses, warm, well-perfused, right lE is larger than left and edematous , limping upon walking . but no sensation deficit , FROM B/L NEUROLOGICAL: Cranial nerves II through XII grossly intact. Normal speech, gait not observed. PSYCH: Normal mood, normal affect. SKIN: Warm, dry, normal turgor, Laboratory Results - last 24 hr 10/22/18 10/22/18 10/22/18 19:57 19:57 20:19 WBC 4.6 RBC 3.48 L Hgb 11.6 Hct 34.6 MCV 99.6 H MCH 33.5 MCHC 33.6 RDW 14.2 Plt Count 312 D MPV 8.9 Absolute Neuts (auto) 2.2 Neutrophils % 48.7 Lymphocytes % 40.8 H D Monocytes % 8.1 Eosinophils % 1.9 Basophils % 0.5 Nucleated RBC % 0 Sodium 146 H Potassium 3.4 L Chloride 111 H Carbon Dioxide 26 Anion Gap 9 BUN 5.4 L Creatinine 0.7 Est GFR (CKD-EPI)AfAm 131.94 Est GFR (CKD-EPI)NonAf 113.84 Random Glucose 80 Calcium 8.7 Total Bilirubin 0.4 AST 19 ALT 27 Alkaline Phosphatase 67 Creatine Kinase 36 Troponin I < 0.02 B-Natriuretic Peptide 205.9 H Total Protein 6.8 Albumin 3.6 Serum , Qual Negative Stool Occult Blood 10/22/18 21:25 WBC RBC Hgb Hct MCV MCH MCHC RDW Plt Count MPV Absolute Neuts (auto) Neutrophils % Lymphocytes % Monocytes % Eosinophils % Basophils % Nucleated RBC % Sodium Potassium Chloride Carbon Dioxide Anion Gap BUN Creatinine Est GFR (CKD-EPI)AfAm Est GFR (CKD-EPI)NonAf Random Glucose Calcium Total Bilirubin AST ALT Alkaline Phosphatase Creatine Kinase Troponin I B-Natriuretic Peptide Total Protein Albumin Serum , Qual Stool Occult Blood Negative CBC, BMP 10/22/18 19:57 10/22/18 19:57 ASSESSMENT/PLAN: 33 year old female with pmhx of gastric sleeve 2018 , liposuction 2 weeks ago presented to ED with worsening LE edema right worse than left , and pain on ambulation admitted to M/S for further evaluation # LE edema * US LE negative for DVTS * Vit B12 elevated in recent lab with pcp * sensation intact B/L FROM * consult Vascular Dr Adames * # chest tightness trop negative and no EKG changes , pt had negative echo and stress test last year , will follow with hercardiologist , no family history of sudden cardiac . # H.O plapitation , stable not active # Hyperthyroidism , resume home meds * likely due to Hyperthyroidism , * F.u TSH # S/P gastric sleeve edcuated about diet and life style changes and mal absorption # S/P liposuction , surgery sight clean with no signs of infection , f.o out pt with her surgeon # FEN * No standing fluids * monitor lyts and replenished as needed * regular diet # Proph * DVTS : SCDS LLE , early ambulation , PT evaluation # Dispo * inpatient m/S Visit type - Emergency Visit Emergency Visit: Yes ED Registration Date: 10/23/18 Care time: The patient presented to the Emergency Department on the above date and was hospitalized for further evaluation of their emergent condition. - New Patient This patient is new to me today: Yes Date on this admission: 10/23/18 - Critical Care Critical Care patient: No
--- NOTE | 2018-10-23 03:05 | PN ---
Teaching Attending Note Name of Resident: Ervin Graham ATTENDING PHYSICIAN STATEMENT I saw and evaluated the patient. I reviewed the resident's note and discussed the case with the resident. I agree with the resident's findings and plan as documented. SUBJECTIVE: Seen and examined; please refer to resident note for further historical information. Briefly, patient is a 33 y/o female who is s/p multiple bariatric procedures (last year, this year-records pending). She tells me that she has a history of thyroid disease For years she has had intermittent chest pressure and palpitations that she associates with her thyroid disease; they've been somewhat frequent and wax and wane. Has seen cardiology for this same issue last year and was told to lose weight; she had what she describes as "weight related changes" on her echo and a negative stress test. Since her procedure ( for weeks) she has had R>L LE edema and parasthesias b/l. She was seen by her PCP for this on wednesday and had US negative for DVT, normal B12, slightly elevated TSH with normal FT4. No new meds, no cardiac meds ever per patient. No FH clotting diseases, no s/sx PE. Vague chest discomfort that has been present with the intermittent palpitations for years is actually reproducible. She has no FH premature CAD, etc. She is walking with a limp (says the edema makes it feel like she has a "pillow" strapped to her foot). ER felt she was unsafe for discharge and wished for admission. She informed us that she had children at home and asked if the tests that would be needed could be done as an outpatient. I informed her that likely yes, and that we wanted to review operative reports in case of anything happening internally contributing to lymphedema of course, but the main reason that admission was requested was that it was felt she was unsafe for discharge. She said she felt safe to go home and that she would followup outpatient citing her multiple children at home. Counseled with resident Dr. Graham regarding risks of leaving including morbidity and mortality but she felt inclined to go. 10 sys ROS done and negative aside from HPI PMH, PSH, FH, SH reviewed Home Medications Medication Instructions Recorded Levothyroxine [Synthroid -] 150 mcg PO DAILY 12/17/15 OBJECTIVE: VS, labs, imaging reviewed NAD, AAO, resting in bed. Gait favors L leg with R-leg marked limp. Was able to limp for 10 feet without falls or support. NC AT EOMI PERRLA RRR s1/2 no mgr Lungs CTAB, w/ sym exp NT ND +BS RLE 1-2+ edema, LE without edema. Sensorium in tact. Moves in all directions. No pseudoclaudication. CN2-12 wnl, no fnd Normal mood, appropriate behavior ASSESSMENT AND PLAN: Patient presents with multiple issues: 2 weeks RLE edema with parasthesias/pain causing isssues to ambulate (recently negative OP vascular studies, normal B12 s /p bariatric), chronic palpitations with negative stress test echo in the past. Relayed to me by ER that there was concern for low-normal protein/albumin. These values are completely wnl and would be expected to have some fluctuance, especially in a patient s/p bariatric procedure. She is planned for an November visit for cardiology which I recommend she keeps. We would consider telemetry. In terms of the RLE edema, we could consider repeating venous US and checking ESR/CRP. She wishes for a referral from Dr. Adames. Well's score for DVT is 0 ( leg swollen, edema confined to leg, alternative dx [lymphedema, other, given negative prior workup 3 days ago] as or more likely). Due to the concern she was unsafe to DC we were willing to admit; as the patient wished to leave AMA despite counseling we explained the risks of her leaving to go home and she had the capacity to understand this and chose to go despite.
--- NOTE | 2018-10-23 03:53 | HOSP ---
Subjective - Review of Symptoms Events since last encounter: pt left against medical advice , risk and disadvantages was explained to the pt including worsening edema , nerve damage , limp ischemia , and limb amputation pt was adviced to foolow up with her PCP within one week and to folow up with Dr Zacarias Gibson vascular surgeon by Wednesday . Physical Examination Vital Signs: Vital Signs Temperature 98.2 F 10/22/18 18:28 Pulse Rate 83 10/22/18 18:28 Respiratory Rate 20 10/22/18 18:26 Blood Pressure 159/92 10/22/18 18:28 O2 Sat by Pulse Oximetry (%) 97 10/22/18 18:28 Labs: CBC, BMP 10/22/18 19:57 10/22/18 19:57 Visit type - Emergency Visit Emergency Visit: Yes ED Registration Date: 10/23/18 Care time: The patient presented to the Emergency Department on the above date and was hospitalized for further evaluation of their emergent condition. - New Patient This patient is new to me today: Yes Date on this admission: 10/23/18 - Critical Care Critical Care patient: No
--- NOTE | 2018-10-23 04:35 | DS ---
Physical Exam: SUBJECTIVE: Patient seen and examined at bed side , asking to leave home and would like to follow up as out pt , risk and disadvantages are explained to the pt and she would like to leave AMA. OBJECTIVE: Vital Signs Period Temp Pulse Resp BP Sys/Gr Pulse Ox Last 24 Hr 98.2 F-98.4 F 83-104 20 148-159/92-99 97-100 PHYSICAL EXAM GENERAL: The patient is awake, alert, and fully oriented, in no acute distress. HEAD: Normal with no signs of trauma. EYES: PERRL, extraocular movements intact, sclera anicteric, conjunctiva clear. ENT: Ears normal, nares patent, oropharynx clear without exudates, moist mucous membranes. NECK: Trachea midline, full range of motion, supple. LUNGS: Breath sounds equal, clear to auscultation bilaterally, no wheezes, no crackles, no accessory muscle use. HEART: Regular rate and rhythm, S1, S2 without murmur, rub or gallop. ABDOMEN: Soft, nontender, nondistended, normoactive bowel sounds, no guarding, no rebound, no hepatosplenomegaly, no masses. EXTREMITIES: 2+ pulses, warm, well-perfused, right lE is larger than left and edematous , limping upon walking . but no sensation deficit , FROM B/L NEUROLOGICAL: Cranial nerves II through XII grossly intact. Normal speech, gait not observed. PSYCH: Normal mood, normal affect. SKIN: Warm, dry, normal turgor, LABS Laboratory Results - last 24 hr 10/22/18 10/22/18 10/22/18 19:57 19:57 20:19 WBC 4.6 RBC 3.48 L Hgb 11.6 Hct 34.6 MCV 99.6 H MCH 33.5 MCHC 33.6 RDW 14.2 Plt Count 312 D MPV 8.9 Absolute Neuts (auto) 2.2 Neutrophils % 48.7 Lymphocytes % 40.8 H D Monocytes % 8.1 Eosinophils % 1.9 Basophils % 0.5 Nucleated RBC % 0 Sodium 146 H Potassium 3.4 L Chloride 111 H Carbon Dioxide 26 Anion Gap 9 BUN 5.4 L Creatinine 0.7 Est GFR (CKD-EPI)AfAm 131.94 Est GFR (CKD-EPI)NonAf 113.84 Random Glucose 80 Calcium 8.7 Total Bilirubin 0.4 AST 19 ALT 27 Alkaline Phosphatase 67 Creatine Kinase 36 Troponin I < 0.02 B-Natriuretic Peptide 205.9 H Total Protein 6.8 Albumin 3.6 Serum , Qual Negative Stool Occult Blood 10/22/18 21:25 WBC RBC Hgb Hct MCV MCH MCHC RDW Plt Count MPV Absolute Neuts (auto) Neutrophils % Lymphocytes % Monocytes % Eosinophils % Basophils % Nucleated RBC % Sodium Potassium Chloride Carbon Dioxide Anion Gap BUN Creatinine Est GFR (CKD-EPI)AfAm Est GFR (CKD-EPI)NonAf Random Glucose Calcium Total Bilirubin AST ALT Alkaline Phosphatase Creatine Kinase Troponin I B-Natriuretic Peptide Total Protein Albumin Serum , Qual Stool Occult Blood Negative CBC, BMP 10/22/18 19:57 10/22/18 19:57 HOSPITAL COURSE: Date of Admission:10/23/18 Date of Discharge: 10/23/18 33 year old female with pmx of Hyperthyroidism , Gastric sleeve 2017, recent Liposuction surgery 2 weeks ago presented to the ED with right leg pain with swollen started 2 weeks ago after the liposuction surgery , DVT was rolled out by US and recent lab at pcp office shows elevated b12 and folic aicd ,pt denies any recent trauma or accident , she is able to walk but limbing due to pain . denies any fever , chills, N/V/D/C , reports some palpitation , worked up last year before sleeve with echo and stress test with no significant changes and would follow with her [employer] , pt admitted to /S for further work up , vascular surgery consult for Dr nguyễn was placed pt decide to leave AMAand follow up out pt , Dr Nguyễn information was provided to her, all risk and disadvantaged was explained to her including compartment syndrome , ischemia , hypoperfusion , worsening edema and nerve damage. pt vitals are stable and she is hemodynamically stable and was able to walk upon leaving , peripheral line was removed. Minutes to complete discharge: 35 Discharge Summary Reason For Visit: PERIPHERAL EDEMA, DIFFICULTY WALKING Current Active Problems Chest pain (Acute) Difficulty walking (Acute) Palpitations (Acute) Peripheral edema (Acute) Condition: Stable - Instructions Diet, Activity, Other Instructions: pt left against medical advice , risk and disadvantages was explained to the pt including worsening edema , nerve damage , limp ischemia , and limb amputation pt was adviced to foolow up with her PCP within one week and to follow up with Dr Zacarias Gibson vascular surgeon by Wednesday . pt can return to ED if symptoms worsen can return to Emergency room. Disposition: AGAINST MEDICAL ADVICE - Home Medications Comprehensive Discharge Medication List: Ambulatory Orders Levothyroxine [Synthroid -] 150 mcg PO DAILY 12/17/15 This patient is new to me today: Yes Date on this admission: 10/23/18 Emergency Visit: Yes ED Registration Date: 10/23/18 Care time: The patient presented to the Emergency Department on the above date and was hospitalized for further evaluation of their emergent condition. Critical Care patient: No - Discharge Referral Referred to [facility] Med [facility] No
[2018-10-23 05:12] VITALS: BP 145/96; PULSE 94
[2018-10-23] MEDS ORDERED: LEVOTHYROXINE NA 150 MCG TABLET PO SCH (07:00)
--- NOTE | 2018-10-24 00:21 | EKG ---
Test Reason : Blood Pressure : / mmHG Vent. Rate : 079 BPM Atrial Rate : 079 BPM P-R Int : 168 ms QRS Dur : 080 ms QT Int : 362 ms P-R-T Axes : 069 038 001 degrees QTc Int : 415 ms SINUS RHYTHM WITH PREMATURE ATRIAL COMPLEXES ABNORMAL ECG WHEN COMPARED WITH ECG OF 02-JUL-2018 17:58, PREMATURE ATRIAL COMPLEXES ARE NOW PRESENT NONSPECIFIC T WAVE ABNORMALITY HAS REPLACED INVERTED T WAVES IN INFERIOR LEADS QT HAS SHORTENED Confirmed by MD Cornell, Dario ([id number]) on 10/24/2018 12:21:15 AM Referred By: Confirmed By:Dario Sarabia MD
== END 2018-10-23 05:00 | disposition left against medical advice (07) | DRG 556 ==
LOC: JER 18:25 → JERBED 10-23 02:36
PROVIDERS: ADMIT Internal Medicine; ATTEND Internal Medicine
DX: M79.604 Pain in right leg (principal); R60.0 Localized edema; E05.90 Thyrotoxicosis, unspecified without thyrotoxic crisis or storm; R07.9 Chest pain, unspecified; R00.2 Palpitations; R26.2 Difficulty in walking, not elsewhere classified
CPT/HCPCS: 36415; 71275-TC; 80053; 82272; 82550; 83880; 84484; 84703; 85025; 93005; 93010; 99284-25

== ENCOUNTER 2018-10-31 18:22 | Emergency (ER) | payer OTHER ==
[2018-10-31 18:31] VITALS: BP 126/86; PULSE 98; TEMP 98.3; BMI 21.6
--- NOTE | 2018-10-31 18:36 | PDOC ---
Rapid Medical Evaluation Chief Complaint: Pain Time Seen by Provider: 10/31/18 18:32 Medical Evaluation: Allergies Allergy/AdvReac Type Severity Reaction Status Date / Time latex Allergy Verified 10/31/18 18:31 Vital Signs Temp Pulse Resp BP Pulse Ox 98.3 F 98 H 19 126/86 100 10/31/18 18:27 10/31/18 18:27 10/31/18 18:27 10/31/18 18:27 10/31/18 18:27 10/31/18 18:34 This patient had a brief in-person evaluation by me. cc: abdominal pain today worse than ever before as per patient s/p stomach bypass 5 months ago and skin removal 3 weeks ago PE: nad +generalize tenderness Orders: labs This patient will proceed to Ed for further evaluation Discharge Disposition - Diagnosis Abdominal pain - Referrals - Patient Instructions - Post Discharge Activity
[2018-10-31] MEDS ORDERED: morphine CARPU-JECT 2 MG/1 ML DISP.SYRIN IVPUSH ONE (18:37)
== END 2018-10-31 19:23 | disposition left against medical advice (07) ==
LOC: JER 18:22
DX: R10.84 Generalized abdominal pain (principal); Z98.84 Bariatric surgery status
CPT/HCPCS: 99281-25

== ENCOUNTER 2018-12-24 16:58 | Emergency (ER) | payer OTHER ==
[2018-12-24 17:04] VITALS: BMI 21.1
[2018-12-24] MEDS ORDERED: SODIUM CHLORIDE 0.9% 1000 ML INFUS.BAG IV ONE (17:34)
--- NOTE | 2018-12-24 18:04 | PDOC ---
Documentation entered by Josias Sharma SCRIBE, acting as scribe for Ibeth Powell MD. Ibeth Powell MD: This documentation has been prepared by the Edith jacobson Xhesika, SCRIBE, under my direction and personally reviewed by me in its entirety. I confirm that the documentation accurately reflects all work, treatment, procedures, and medical decision making performed by me. History of Present Illness - General Chief Complaint: Back Pain Stated Complaint: BACK PAIN & CRAMPING History Source: Patient Exam Limitations: No Limitations - History of Present Illness Initial Comments: 12/24/18 17:36 The patient is a 33 year old female with a past medical history of hypothyroidism, gastric sleeve surgery (01/27/18), esophageal stricture (s/p balloon dilation 02/28/18 at [facility]), and gastric bypass revision who presents to the emergency department with 2 days of flank pain L>R, chills, nausea, and dysuria. The patient states she was seen at Urgent Care 11/28/18 and finished her course of antibiotics, however, her symptoms did not subside. Patient states she called her AMBULANCE OFFICER and was advised to come to the ED for further evaluation. denies new sexual partners, is in monogomous relationship with her . no vaginal discharge. she had IUD Placed 4 weeks ago. just finished her menses today. nausea, no vomiting. no fever, positive chills. was tested for STD prior to IUD insertion and all wer negative. no h/o recent ovarian cyst however has had in the past. The patient denies chest pain, shortness of breath, headache and dizziness. . Denies dysuria, frequency, urgency and hematuria. Allergies: Latex PCP: Kedar Talbert 12/24/18 17:59 Past History - Past Medical History Allergies/Adverse Reactions: Allergies Allergy/AdvReac Type Severity Reaction Status Date / Time latex Allergy Verified 12/24/18 17:04 Home Medications: Ambulatory Orders Levothyroxine [Synthroid -] 150 mcg PO DAILY 12/17/15 COPD: No GI Disorders: Yes (gastric sleeve) Thyroid Disease: Yes (hypothyroid) - Surgical History GI Surgery: Yes (gastric sleeve/bypass) - Suicide/Smoking/Psychosocial Hx Smoking Status: No Smoking History: Never smoked Number of Cigarettes Smoked Daily: 0 Hx Alcohol Use: No Drug/Substance Use Hx: No Review of Systems - Review of Systems Able to Perform ROS?: Yes Comments:: 12/24/18 17:37 GENERAL/CONSTITUTIONAL: (+)chills. No fever. No weakness. HEAD, EYES, EARS, NOSE AND THROAT: No change in vision. No ear pain or discharge. No sore throat. CARDIOVASCULAR: No chest pain or shortness of breath. RESPIRATORY: No cough, wheezing, or hemoptysis. GASTROINTESTINAL: (+) nausea. No vomiting, diarrhea or constipation. GENITOURINARY: (+)dysuria. No frequency, or change in urination. MUSCULOSKELETAL: (+) b/l flank pain L>R. No joint or muscle swelling or pain. No neck or back pain. SKIN: No rash NEUROLOGIC: No headache, vertigo, loss of consciousness, or change in strength/ sensation. ENDOCRINE: No increased thirst. No abnormal weight change. HEMATOLOGIC/LYMPHATIC: No anemia, easy bleeding, or history of blood clots. ALLERGIC/IMMUNOLOGIC: No hives or skin allergy. *Physical Exam - Vital Signs Last Vital Signs Temp Pulse Resp BP Pulse Ox 98.1 F 90 18 117/73 100 12/24/18 17:01 12/24/18 17:01 12/24/18 17:01 12/24/18 17:01 12/24/18 17:01 - Physical Exam Comments: 12/24/18 18:01 awake alert lungs clear bilat heart rrr no mrg abd soft left mid quad right mid quad ttp. no lower abd tenderness. positive CVA tenderness bilat L >R. ext wwp no carmen.a no calf tenderness. nuero alert oriented x 3. pelvic scant blood, mucous in vault. no adnexal tenderness. no adnexal masses. no CMT Medical Decision Making - Medical Decision Making 12/24/18 18:02 33 yo F h/o gastric sleeve,bypass, iud here with persistant uti sxs flank pain following course abx for uti 3 weeks ago. urgent care where urine tested currently closed. unable to call for cultures results. pelvic unremarakble. plan ua r/o persistant infection, labs ct a/p r/o stone or other cause of abd pain. *DC/Admit/Observation/Transfer - Referrals Referrals: Kedar Funez [Primary Care Provider] - - Patient Instructions - Post Discharge Activity
[2018-12-24 18:24] LABS: BASO % 0.2 % (0-2.0); EOS % 0.2 % (0-4.5); HEMATOCRIT 34.3 % (32.4-45.2); HEMOGLOBIN 11.2 GM/dL (10.7-15.3); LYMPH % 38.5 % (8-40); MCH 32.8 pg (25.7-33.7); MCHC 32.7 g/dl (32.0-36.0); MEAN CELL VOLUME 100.3 fl (80-96); MEAN PLT VOLUME 8.4 fl (7.5-11.1); NEUT % 55.1 % (42.8-82.8); PLATELET COUNT 276 K/MM3 (134-434); RBC 3.42 M/mm3 (3.60-5.2); RDW 12.5 % (11.6-15.6); WHITE BLOOD COUNT 5.5 K/mm3 (4.0-10.0)
[2018-12-24 18:27] LABS: EPI CELLS 7.7 /HPF (0-5/HPF); HYALINE CASTS 18 /lpf (0-8); PH,URINE 6.5 (5.0-8.0); URINE APPEARANCE CLOUDY; URINE BACTERIA >9000 /hpf (NEGATIVE); URINE BILIRUBIN NEGATIVE (NEGATIVE); URINE COLOR YELLOW; URINE GLUCOSE (UA) NEGATIVE (NEGATIVE); URINE KETONE NEGATIVE (NEGATIVE); URINE LEUK ESTERASE 1+ (NEGATIVE); URINE NITRITE POSITIVE (NEGATIVE); URINE PROTEIN NEGATIVE (NEGATIVE); URINE RBC 8 /hpf (0-4); URINE UROBILINOGEN 0.2 mg/dL (0.2-1.0); URINE WBC 17 /hpf (0-5)
[2018-12-24] MEDS ORDERED: CEFTRIAXONE 1,000 MG in DEXTROSE 5%-WATER - 50 ML IVPB ONE (18:45)
[2018-12-24 18:54] LABS: ALBUMIN 4.1 g/dl (3.4-5.0); BILIRUBIN,TOTAL 0.3 mg/dL (0.2-1); BLOOD UREA NITROGEN 6.4 mg/dL (7-18); CALCIUM 9.4 mg/dL (8.5-10.1); CREATININE 0.8 mg/dL (0.55-1.3); POTASSIUM 4.3 mmol/L (3.5-5.1); TOT PROT 7.3 g/dl (6.4-8.2)
[2018-12-24] MEDS ORDERED: CEFTRIAXONE 1 GM/50 ML BAG ONE (19:01)
[2018-12-24 21:11] VITALS: TEMP 98.2
--- NOTE | 2018-12-24 21:41 | PDOC ---
*Physical Exam - Vital Signs Last Vital Signs Temp Pulse Resp BP Pulse Ox 98.2 F 82 18 130/73 98 12/24/18 21:10 12/24/18 21:10 12/24/18 17:01 12/24/18 21:10 12/24/18 21:10 ED Treatment Course - LABORATORY CBC & Chemistry Diagram: 12/24/18 18:07 12/24/18 18:07 - ADDITIONAL ORDERS Additional order review: Laboratory Results 12/24/18 12/24/18 12/24/18 18:17 18:15 18:07 Sodium Potassium Chloride Carbon Dioxide Anion Gap BUN Creatinine Est GFR (CKD-EPI)AfAm Est GFR (CKD-EPI)NonAf Random Glucose Lactic Acid 1.1 Calcium Total Bilirubin AST ALT Alkaline Phosphatase Total Protein Albumin Urine Color Yellow Urine Appearance Cloudy Urine pH 6.5 Ur Specific Tullos 1.012 Urine Protein Negative Urine Glucose (UA) Negative Urine Ketones Negative Urine Blood 1+ H Urine Nitrite Positive H Urine Bilirubin Negative Urine Urobilinogen 0.2 Ur Leukocyte Esterase 1+ H Urine WBC (Auto) 17 Urine RBC (Auto) 8 Urine Casts (Auto) 18 U Epithel Cells (Auto) 7.7 Urine Bacteria (Auto) >9000 Urine HCG, Qual Negative 12/24/18 18:07 Sodium 141 Potassium 4.3 Chloride 108 H Carbon Dioxide 29 Anion Gap 5 L BUN 6.4 L Creatinine 0.8 Est GFR (CKD-EPI)AfAm 112.27 Est GFR (CKD-EPI)NonAf 96.87 Random Glucose 87 Lactic Acid Calcium 9.4 Total Bilirubin 0.3 AST 20 ALT 27 Alkaline Phosphatase 76 Total Protein 7.3 Albumin 4.1 Urine Color Urine Appearance Urine pH Ur Specific Tullos Urine Protein Urine Glucose (UA) Urine Ketones Urine Blood Urine Nitrite Urine Bilirubin Urine Urobilinogen Ur Leukocyte Esterase Urine WBC (Auto) Urine RBC (Auto) Urine Casts (Auto) U Epithel Cells (Auto) Urine Bacteria (Auto) Urine HCG, Qual 12/24/18 18:07 RBC 3.42 L MCV 100.3 H MCHC 32.7 RDW 12.5 D MPV 8.4 Neutrophils % 55.1 Lymphocytes % 38.5 Monocytes % 6.0 Eosinophils % 0.2 D Basophils % 0.2 - Medications Given in the ED: ED Medications Discontinued Medications Generic Name Dose Route Start Last Admin Trade Name Freq PRN Reason Stop Dose Admin Diphenhydramine HCl 25 mg 12/24/18 21:31 12/24/18 21:33 Benadryl Injection - IVPB 12/24/18 21:32 25 mg ONCE ONE Administration Ceftriaxone Sodium 1,000 mg/ 50 mls @ 100 mls/hr 12/24/18 18:45 12/24/18 19: 34 Dextrose IVPB 12/24/18 19:14 100 mls/hr ONCE ONE Administration Sodium Chloride 1,000 ml 12/24/18 17:34 12/24/18 18:28 Normal Saline - IV 12/24/18 17:35 1,000 ml ONCE ONE Administration Medical Decision Making - Medical Decision Making 12/24/18 21:40 Patient Name: DOMENICA WONG THIS IS A PRELIMINARY REPORT FROM [employer] DATE OF SERVICE: 2018-12-24 19:41:31 IMAGES: [id number] EXAM: ABDOMEN \T\ PELVIS CT W/O CONTR HISTORY: Evaluate for urinary tract calculi. Procedure: Contiguous axial tomographic sections were obtained from the dome of the diaphragm to the bilateral ischial tuberosities without the use of oral or intravenous contrast. Sagittal and coronal reformatted images are provided. COMPARISON: None currently available. Preliminary findings/impression: 1. Right renal and bladder calculi, without evidence of hydronephrosis or hydroureter. 2. Hypodense right hepatic lesion, with possible etiologies including cyst and hemangioma. If able to be performed, an abdominal MR with intravenous gadolinium may be helpful for further evaluation. 3. Gallbladder sludge. 4. Abdominal and pelvic ileus, with increased colonic stool, which can be seen in the setting of constipation. 5. Nonspecific inflammatory and/or edematous changes at the anterior abdominal and pelvic subcutaneous fat, with ovoid fluid collection at the anterior pelvic subcutaneous fat. Please correlate clinically. 6. Mild scoliosis of the thoracolumbar spine. 12/24/18 22:06 Pt has some flank pain and she will take only tylenol OTC, as she is forbidden from taking motrin 12/24/18 22:07 Pt was given a copy of her CT scan result, as there are all kinds of findings. *DC/Admit/Observation/Transfer Diagnosis at time of Disposition: Renal calculus or stone, UTI (urinary tract infection) - Discharge Dispostion Disposition: HOME Decision to Admit order: No - Prescriptions Prescriptions: Sulfamethoxazole/Trimethoprim [Bactrim Ds -] 1 tab PO BID #14 tablet - Referrals Referrals: Kedar Funez [Primary Care Provider] - Giovani Samaniego MD [Staff Physician] - - Patient Instructions Printed Discharge Instructions: Kidney Stones -- Adult - Post Discharge Activity Forms/Work/School Notes: Parent(s) Back to Work Note
[2018-12-24] MEDS ORDERED: SULFAMETHOXAZOLE/TRIMETHOPRIM 800MG/160MG D.S. TABLET PO ONE (21:42)
[2018-12-24] MEDS ORDERED: SULFAMETHOXAZOLE/TRIMETHOPRIM 800MG/160MG D.S. TABLET ONE (22:12)
[2018-12-24 22:30] VITALS: BP 134/76; PULSE 79
== END 2018-12-24 22:15 | disposition home or self-care (01) ==
LOC: JER 16:58
DX: N20.0 Calculus of kidney (principal); N39.0 Urinary tract infection, site not specified; E03.9 Hypothyroidism, unspecified; Z98.84 Bariatric surgery status
CPT/HCPCS: 36415; 74176-TC; 80053; 81003; 83605; 84703; 85025; 87086; 87186; 87491; 87591; 99284-25; J7030